=== PATIENT | female | born 1950 | race Hispanic/Latino ===

== ENCOUNTER → 2022-04-05 | Outpatient (CLI) | payer MEDICARE ==
[~2022-04-05] MED LIST: ALPR1TAB7 PO; AMLO-257 PO; DULO60CA64 PO; ESTR8.1S TD; LEVO75TA10 PO; METF-526 PO; MONT-39 PO; PROVENTIL PUFF; QUET200T30 PO; SIMV40TA2 PO; SUCR1TAB2 PO; TYL2 PO
== END | disposition home or self-care (01) ==
LOC: RAH 14:00
PROVIDERS: ATTEND Internal Medicine
DX: S09.90XA Unspecified injury of head, initial encounter (principal)
CPT/HCPCS: 70450; 71045; 72170